=== PATIENT | male | born 1970 | race African-American/Black ===

== ENCOUNTER → 2019-11-24 | Outpatient (CLI) | payer OTHER ==
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
== END | disposition home or self-care (01) ==
LOC: RAD 09:17
PROVIDERS: ATTEND Family Medicine
DX: M25.551 Pain in right hip (principal); Z87.81 Personal history of (healed) traumatic fracture
CPT/HCPCS: 73502

== ENCOUNTER 2021-02-07 14:51 | Emergency (ER) | payer OTHER ==
[~2021-02-07] VITALS: Ht 182.9 cm; Wt 79.6 kg
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
[2021-02-07 18:28] VITALS: BP 136/99
[2021-02-07] MEDS ORDERED: CLIN150C15 PO (18:29)
[2021-02-07] MEDS ORDERED: HYDR-2761 PO (18:29)
== END 2021-02-07 18:37 | disposition home or self-care (01) ==
LOC: ER 14:51
DX: S02.85XA Fracture of orbit, unspecified, initial encounter for closed fracture (principal); S02.40FA Zygomatic fracture, left side, initial encounter for closed fracture; K02.9 Dental caries, unspecified; Y04.0XXA Assault by unarmed brawl or fight, initial encounter; Y93.89 Activity, other specified; Y92.89 Other specified places as the place of occurrence of the external cause; Y99.8 Other external cause status
CPT/HCPCS: 70486; 99284